=== PATIENT | male | born 1955 | race Caucasian/White ===

== ENCOUNTER → 2024-03-18 10:11 | Outpatient (REF) | payer MEDICARE, BC, SELFPAY | LOC: HWRAD 10:11 | PROVIDERS: ATTENDING PHYSICIAN Family Medicine | DX: I10 Essential (primary) hypertension (principal) | CPT/HCPCS: 71046 ==

== ENCOUNTER → 2025-05-19 07:13 | Outpatient (REF) | payer MEDICARE, BC, SELFPAY | LOC: HWRAD 07:13 | PROVIDERS: ATTENDING PHYSICIAN Family Medicine | DX: K82.4 Cholesterolosis of gallbladder (principal); E04.1 Nontoxic single thyroid nodule | CPT/HCPCS: 76536; 76700 ==